=== PATIENT | female | born 1985 | race American Indian/Alaskan Native ===

== ENCOUNTER 2017-10-08 10:23 | Emergency (ER) | payer MEDICAID ==
[2017-10-08 11:10] VITALS: BP 134/81
[2017-10-08 12:49] LABS: Basophils % (Auto) 0.6 % (0.0-1.8); Eosinophils % (Auto) 0.3 % (0.0-4.3); Hematocrit 37.3 % (30.3-42.9); Hemoglobin 12.1 gm/dl (10.1-14.3); Lymphocytes # (Auto) 1.7 K/mm3 (1.2-5.4); Lymphocytes % (Auto) 46.6 % (13.4-35.0); Mean Corpuscular HGB Conc 33 % (30-34); Mean Corpuscular Hemoglobin 29 pg (28-32); Mean Corpuscular Volume 88 fl (79-97); Monocytes # (Auto) 0.3 K/mm3 (0.0-0.8); Monocytes % (Auto) 8.9 % (0.0-7.3); Platelet Count 133 K/mm3 (140-440); Red Blood Count 4.27 M/mm3 (3.65-5.03); Red Cell Distribution Width 14.4 % (13.2-15.2)
--- NOTE | 2017-10-08 12:52 | Emergency Department Report ---
Blank Doc - Documentation Documentation: Patient is a 32-year-old [place] female who is presenting with left upper quadrant discomfort radiating to the chest. Patient states this is been intermittent for the last week. Patient states is sometimes as a fluttering sensation sometimes sharp pain left upper quadrant. Patient states she is last up to several seconds to a minute in time. Patient denies any nausea vomiting diarrhea. Patient also states there is no shortness of breath or cough. Laboratory studies will be done to rule out any abdomen and EKG.
[2017-10-08 13:05] LABS: Alanine Aminotransferase 9 units/L (7-56); Albumin 4.1 g/dL (3.9-5); BUN/Creatinine Ratio 17; Blood Urea Nitrogen 10 mg/dL (7-17); Calcium 8.7 mg/dL (8.4-10.2); Hemolysis Index 2
--- NOTE | 2017-10-08 15:30 | Emergency Department Report ---
ED General Adult HPI - General Chief complaint: Abdominal Pain Stated complaint: VIBRATION SENSATION IN CHEST Time Seen by Provider: 10/08/17 12:43 Source: patient Mode of arrival: Ambulatory Limitations: No Limitations - History of Present Illness Initial comments: Patient is a 32-year-old [place] female who is presenting with left upper quadrant discomfort radiating to the chest. Patient states this is been intermittent for the last week. Patient states is sometimes as a fluttering sensation sometimes sharp pain left upper quadrant. Patient states she is last up to several seconds to a minute in time. Patient denies any nausea vomiting diarrhea. Patient also states there is no shortness of breath or cough. Severity scale (0 -10): 5 Improves with: none Worsens with: none - Related Data Previous Rx's Medication Instructions Recorded Last Taken Type Cyclobenzaprine HCl [Flexeril 5 MG 5 mg PO TID PRN #21 tab 02/03/16 Unknown Rx TAB] Ibuprofen [Motrin 800 MG tab] 800 mg PO Q8HR PRN #30 tablet 02/03/16 Unknown Rx Famotidine [Pepcid] 40 mg PO QHS #20 tablet 10/08/17 Unknown Rx Allergies Allergy/AdvReac Type Severity Reaction Status Date / Time allantoin [From Orajel] Allergy Swelling Verified 10/08/17 11:03 benzalkonium chloride Allergy Swelling Verified 10/08/17 11:03 [From Orajel] benzocaine [From Orajel] Allergy Swelling Verified 10/08/17 11:03 carbamide peroxide Allergy Swelling Verified 10/08/17 11:03 [From Orajel] zinc chloride [From Orajel] Allergy Swelling Verified 10/08/17 11:03 ED Review of Systems ROS: Stated complaint: VIBRATION SENSATION IN CHEST Other details as noted in HPI Comment: All other systems reviewed and negative ED Past Medical Hx - Past Medical History Additional medical history: pneumonia - Surgical History Past Surgical History?: No - Social History Smoking Status: Never Smoker Substance Use Type: Alcohol, Marijuana - Medications Home Medications: Home Medications Medication Instructions Recorded Confirmed Last Taken Type Cyclobenzaprine HCl [Flexeril 5 MG 5 mg PO TID PRN #21 tab 02/03/16 Unknown Rx TAB] Ibuprofen [Motrin 800 MG tab] 800 mg PO Q8HR PRN #30 tablet 02/03/16 Unknown Rx Famotidine [Pepcid] 40 mg PO QHS #20 tablet 10/08/17 Unknown Rx ED Physical Exam - General Limitations: No Limitations General appearance: alert, in no apparent distress - Head Head exam: Present: atraumatic, normocephalic - Eye Eye exam: Present: normal appearance - ENT ENT exam: Present: mucous membranes moist - Neck Neck exam: Present: normal inspection - Respiratory Respiratory exam: Present: normal lung sounds bilaterally. Absent: respiratory distress - Cardiovascular Cardiovascular Exam: Present: regular rate, normal rhythm. Absent: systolic murmur, diastolic murmur, rubs, gallop - GI/Abdominal GI/Abdominal exam: Present: soft, normal bowel sounds - Extremities Exam Extremities exam: Present: normal inspection - Back Exam Back exam: Present: normal inspection - Neurological Exam Neurological exam: Present: alert, oriented X3 - Psychiatric Psychiatric exam: Present: normal affect, normal mood - Skin Skin exam: Present: warm, dry, intact, normal color. Absent: rash ED Course Vital Signs 10/08/17 11:03 Temperature 98.3 F Pulse Rate 81 Respiratory 18 Rate Blood Pressure 134/81 O2 Sat by Pulse 100 Oximetry ED Medical Decision Making - Lab Data Result diagrams: 10/08/17 12:32 10/08/17 12:32 - EKG Data Interpretation: other 10/08/17 15:28 Patient's EKG shows sinus rhythm at a rate of 71 normal axis normal Annable is no ST segment elevations or depressions as interpreted as normal EKG at 1258 - Medical Decision Making Patient laboratory studies appear within normal limits patient most likely has GERD type symptoms with discharge home with meds. Critical care attestation.: If time is entered above; I have spent that time in minutes in the direct care of this critically ill patient, excluding procedure time. ED Disposition Clinical Impression: GERD (gastroesophageal reflux disease) Qualifiers: Esophagitis presence: without esophagitis Qualified Code(s): K21.9 - Gastro- esophageal reflux disease without esophagitis Disposition: TO HOME OR SELFCARE Is pt being admited?: No Does the pt Need Aspirin: No Condition: Stable Instructions: Gastroesophageal Reflux Disease (ED) Prescriptions: Famotidine [Pepcid] 40 mg PO QHS #20 tablet Referrals: PRIMARY CARE, [Primary Care Provider] - 3-5 Days
[2017-10-08 23:13] LABS: Bilirubin,Urine NEG (Negative); Blood,Urine SM (Negative); Color,Urine Straw (Yellow); Protein,Urine <15 mg/dL mg/dL (Negative); Urobilinogen,Urine < 2.0 mg/dL (<2.0)
== END 2017-10-08 16:11 | disposition home or self-care (01) ==
LOC: ED 10:23
DX: K21.9 Gastro-esophageal reflux disease without esophagitis (principal); F12.10 Cannabis abuse, uncomplicated; Z88.6 Allergy status to analgesic agent; Z88.8 Allergy status to other drugs, medicaments and biological substances
CPT/HCPCS: 36415; 80053; 81001; 85025; 93005; 93010; 99283